=== PATIENT | male | born 1970 | race Caucasian/White ===

== ENCOUNTER 2018-04-24 14:34 | Outpatient (CLI) | payer BC ==
--- NOTE | 2018-04-24 16:40 | RAD ---
LUMBAR SPINE 3 VIEWS: Date: 04/24/18 HISTORY: M51.16, intervertebral degenerative disease. 99.83, lumbar foraminal stenosis. COMPARISON: None. FINDINGS: No fracture. No malalignment. In the neutral position, no significant listhesis. Moderate narrowing L 4-5 and L5-S1 disc spaces with anterior and posterior disc osteophyte complexes. There is narrowing of the interspinous space between L2-L5 with flattening and pseudoarticulation. No significant listhesis on flexion or extension. IMPRESSION: Moderate spondylosis as described above. POS: [facility]
--- NOTE | 2018-04-24 17:24 | MRI ---
MRI LUMBAR SPINE WITHOUT CONTRAST: Date: 04/24/18 HISTORY: Intervertebral degenerative disc disease. Lumbar spine pain for many years. Symptoms progressively wo rsening. Previous surgery at L5-S1. COMPARISON: None. TECHNIQUE: MRI lumbar spine is performed without intravenous Gadolinium administration. Multisequential, multipl beverly imaging is performed. FINDINGS: Symmetric signal intensity of the psoas muscles. Appropriate signal intensity of the visualized solid organs. Conus medullaris terminates at the mid L1 level. Appropriate T1 marrow signal intensity of the lumbar vertebra. Vertebral body height is maintained. N o fracture. No significant STIR hyperintensity to suggest edema or ligamentous injury. Vertebral body hemangioma at L3 is noted. T12-L1: Adequate disc hydration. No significant central canal stenosis or foraminal narrowing. L1-L2: Adequate disc hydration. No significant central canal stenosis or foraminal narrowing. L2-L3: Minimal central disc protrusion. Minimal central canal stenosis. Neural foramina are patent bilateral ly. L3-L4: Adequate disc hydration. No significant central canal stenosis or neural foraminal narrowing. L4-L5: Adequate disc hydration. There is a central/left subarticular disc bulge. There is associated T2 hype rintensity along the posterior margin of the disc suggesting a small annular fissure. Mild narrowing of the left subarticular zone with minimal mass effect upon the traversing left L5 nerve root. Right subarticular zone is unremarkable. No significant stenosis of the thecal sac. Mid bilateral foraminal narrowing. L5-S1: There is desiccation with moderate loss of disc space height. There is a left subarticular disc protr usion. Disc material deforms and displaces the traversing left S1 nerve root. No significant stenosis of the thecal sac. Right subarticular zone is unremarkable. Left hemilaminectomy defect is identifie d. Evaluation for granulation tissue is limited. Right neural foramen is patent. Moderate left forami nal narrowing due to disc material. IMPRESSION: 1. Degenerative changes of lumbar spine at L4-L5 with annular fissure. 2. Degenerative change and postoperative change at L5-S1. There is disc material in the left subarti cular zone with displacement of the traversing left S1 nerve root. There is moderate left neural fora sam narrowing. POS: [facility]
== END 2018-04-24 14:35 | disposition home or self-care (01) ==
LOC: TBSIIMAG 14:34
PROVIDERS: ATTEND Neurological Surgery
DX: M51.16 Intervertebral disc disorders with radiculopathy, lumbar region (principal); M47.26 Other spondylosis with radiculopathy, lumbar region; M99.83 Other biomechanical lesions of lumbar region; M47.897 Other spondylosis, lumbosacral region; M99.53 Intervertebral disc stenosis of neural canal of lumbar region; Z98.890 Other specified postprocedural states
CPT/HCPCS: 72100; 72148

== ENCOUNTER 2018-05-14 10:12 | Outpatient (CLI) | payer BC ==
--- NOTE | 2018-05-14 10:54 | RAD ---
RIGHT HIP TWO VIEWS: History: Right hip pain. FINDINGS: Mild joint space narrowing, osteophytosis and subchondral sclerosis. Femoral head contour is maintain ed. No acute fracture, dislocation, or aggressive osseous erosions. Degenerative changes right sacroi liac joint. IMPRESSION: Mild osteoarthritis right hip. POS: [facility]
== END 2018-05-14 10:13 | disposition home or self-care (01) ==
LOC: TBSIIMAG 10:12
PROVIDERS: ATTEND Neurological Surgery
DX: M25.551 Pain in right hip (principal); M16.11 Unilateral primary osteoarthritis, right hip

== ENCOUNTER 2020-08-29 07:26 | Outpatient (CLI) | payer BC ==
--- NOTE | 2020-08-29 10:18 | MRI ---
MRI OF THE LUMBAR SPINE WITHOUT CONTRAST: INDICATION: A 49-year-old male with a history degenerative disk disease, back pain, and right hip pain. COMPARISON: Prior MRI of the lumbar spine dated 04/24/2018. FINDINGS: Bone marrow signal intensity appears within normal limits. A small hemangioma within L3 is stable ap pearing. Conus is seen to terminate at approximately L1. Visualized aspects of the retroperitoneum and paravertebral soft tissues appear within normal limits. At L5-S1, there is an asymmetric to the left disk-osteophyte complex and facet joint degenerative lucinda nge inducing moderate left lateral recess narrowing with potential for impingement of the traversing left S1 nerve root. This is stable to the prior exam. The disk-osteophyte complex and facet hypertr ophy inducing moderate left neural foraminal narrowing which is stable to the prior examination. At L4-5, there is a broad-based disk bulge with a superimposed left paracentral annular fissure. The re is facet hypertrophy. Constellation of findings induces mild neural foraminal encroachment. This all stable from the prior exam. At L3-4, there is a broad-based bulge with mild neural foraminal encroachment that is stable to the p rior exam. At L2-3, there is no appreciable central canal or neural foraminal narrowing. At L1-L2, there is no appreciable central canal or neural foraminal narrowing. At T12-L1, there is no appreciable central canal or neural foraminal narrowing. IMPRESSION: 1. Stable spondylosis of the lumbar spine most pronounced at L5-S1. There is a broad-based disk-ost eophyte complex and facet hypertrophy inducing moderate narrowing of the left lateral recess with pot ential for impingement of the traversing left S1 nerve root. There is also a stable moderate left ne ural foraminal narrowing. 2. Stable mild neural foraminal narrowing at L4-5 and L3-4. POS: [facility]
== END 2020-08-29 07:27 | disposition home or self-care (01) ==
LOC: BICMRI 07:26
PROVIDERS: ATTEND Family Medicine
DX: M51.36 Other intervertebral disc degeneration, lumbar region (principal); M47.816 Spondylosis without myelopathy or radiculopathy, lumbar region; M47.817 Spondylosis without myelopathy or radiculopathy, lumbosacral region; M48.061 Spinal stenosis, lumbar region without neurogenic claudication; M25.78 Osteophyte, vertebrae; M89.38 Hypertrophy of bone, other site; M48.07 Spinal stenosis, lumbosacral region
CPT/HCPCS: 72148